=== PATIENT | female | born 1985 ===

== ENCOUNTER 2016-10-15 18:20 | Emergency (ER) | payer MEDICAID ==
[2016-10-15 18:21] VITALS: BMI 31.9
[2016-10-15 18:30] VITALS: BP 121/81; PULSE 85; RESP 16; TEMP 98.4; O2SAT 100
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
== END 2016-10-15 19:20 | disposition home or self-care (01) ==
LOC: H.ER 18:20
DX: M79.601 Pain in right arm (principal); V43.62XA Car passenger injured in collision with other type car in traffic accident, initial encounter; Y92.410 Unspecified street and highway as the place of occurrence of the external cause; F41.9 Anxiety disorder, unspecified